=== PATIENT | male | born 1995 | race African-American/Black ===

== ENCOUNTER 2024-05-28 12:04 | Emergency (ER) | payer OTHER ==
[~2024-05-28] VITALS: Ht 188 cm; Wt 86.2 kg
[2024-05-28 12:10] VITALS: O2SAT 99
[2024-05-28 12:17] VITALS: BP 141/74; PULSE 61; RESP 16; TEMP 98.3; O2SAT 99
== END 2024-05-28 13:43 | disposition home or self-care (01) ==
LOC: ER 12:04
DX: A05.9 Bacterial foodborne intoxication, unspecified (principal)
CPT/HCPCS: 99281; Z7610